=== PATIENT | female | born 1985 | race African-American/Black ===

== ENCOUNTER 2018-02-17 10:56 | Outpatient (REF) | payer BC, SELFPAY ==
[2018-02-17 14:31] LABS: ALT 22 U/L (12-78); AST 29 U/L (15-37); Albumin 3.8 g/dL (3.4-5.0); Alkaline Phosphatase 85 U/L (46-116); Anion Gap 8.9 mmol/L (3-11); BUN 6 mg/dL (7-18); Bilirubin, Total 0.3 mg/dL (0.2-1.0); CO2 27.1 mmol/L (21.0-32.0); CREATININE 1.07 mg/dL (0.55-1.02); Calcium 9.2 mg/dL (8.5-10.1); Chloride 102 mmol/L (98-107); Cholesterol 186 mg/dL (50-200); Estimated GFR 59.43 (mL/min/1.73m2); Glucose 77 mg/dL (70-100); HDL Cholesterol 60 mg/dL (40-60); LDL CHOLESTEROL 111 mg/dL (<100); Potassium 4.5 mmol/L (3.5-5.1); Sodium 138 mmol/L (136-145); TSH (W/Ref FT4) 0.95 uIU/mL (0.358-3.74); Total Protein 8.1 g/dL (6.4-8.2); Triglyceride 81 mg/dL (30-150)
== END 2018-02-17 11:16 ==
LOC: NCHCN 10:56
PROVIDERS: PCP Nurse Practitioner Family; Visit Provider Nurse Practitioner Family
DX: Z20.2 Contact with and (suspected) exposure to infections with a predominantly sexual mode of transmission (principal); Z13.228 Encounter for screening for other metabolic disorders; Z13.220 Encounter for screening for lipoid disorders; Z13.29 Encounter for screening for other suspected endocrine disorder
CPT/HCPCS: 80053; 80061; 83721; 84443

== ENCOUNTER 2019-05-14 12:29 | Outpatient (REF) | payer BC, SELFPAY ==
--- NOTE | 2019-05-14 11:00 | PAPFT_PTH ---
PATIENT: Francine Epps LOC: [facility] U#:[id number] AGE/SX: 34/F ROOM: RE05/14/[address]: Dania Grier : 1985 BED: DIS: 05/14/2019 SPEC #: [id number] RECD: 05/14/19 18:19 STATUS: JAYME REQ #: [id number] JOCELYNE: 05/14/19 11:[address]: Dania Grier DEPT: [facility] Cytology RECD BY: Lorene Gonzalez Tissues: 1 - CX/ENDOCX FOR PAP SMEARS Procedures: PAP THIN PREP/UVM Screening HPV DNA PROBE Comments: [id number]
[2019-05-16 13:36] LABS: Chlamydia Result Negative (Negative); GC Result Negative (Negative)
== END 2019-05-14 12:49 ==
LOC: NCHCN 12:29
PROVIDERS: PCP Nurse Practitioner Family; Visit Provider Nurse Practitioner Family
DX: Z11.3 Encounter for screening for infections with a predominantly sexual mode of transmission (principal); Z00.00 Encounter for general adult medical examination without abnormal findings; Z12.4 Encounter for screening for malignant neoplasm of cervix
CPT/HCPCS: 87491; 87591; 88142; 87624

== ENCOUNTER 2020-01-22 19:38 | Outpatient (REF) | payer MEDICAID, SELFPAY ==
[2020-01-24 15:22] LABS: Chlamydia Result Negative (Negative); GC Result Negative (Negative)
== END 2020-01-22 19:58 ==
LOC: NCHCN 19:38
PROVIDERS: PCP Nurse Practitioner Family; Visit Provider Nurse Practitioner Family
DX: Z11.3 Encounter for screening for infections with a predominantly sexual mode of transmission (principal)
CPT/HCPCS: 87491; 87591

== ENCOUNTER 2020-04-29 18:16 | Outpatient (REF) | payer MEDICAID, SELFPAY ==
[2020-04-30 07:02] LABS: HCT 37.9 % (36.0-46.0); HGB 12.8 g/dL (11.2-15.7); MCH 31.4 pg (27.0-33.0); MCHC 33.8 % (32.0-36.0); MCV 93.1 fL (80-95); MPV 10.8 fL (8.0-11.0); Platelet Count 307 10^3/uL (130-400); RBC 4.07 10^6/uL (3.93-5.22); RDW 12.7 % (11.7-14.6); RDW-SD 43.8 fL; WBC 4.77 10^3/uL (4.4-10.8)
[2020-04-30 07:15] LABS: ALT 55 U/L (14-59); AST 84 U/L (15-37); Alkaline Phosphatase 84 U/L (46-116); Anion Gap 11.7 mmol/L (3-11); BUN 10 mg/dL (7-18); Bilirubin, Total 0.7 mg/dL (0.2-1.0); CO2 28.3 mmol/L (21.0-32.0); CREATININE 1.42 mg/dL (0.55-1.02); Chloride 98 mmol/L (98-107); Glucose 71 mg/dL (74-106); Potassium 3.7 mmol/L (3.5-5.1); Sodium 138 mmol/L (136-145); Total Protein 8.2 g/dL (6.4-8.2)
== END 2020-04-29 18:36 ==
LOC: NCHCN 18:16
PROVIDERS: PCP Nurse Practitioner Family; Visit Provider Nurse Practitioner Family
DX: I10 Essential (primary) hypertension (principal)
CPT/HCPCS: 80053; 85027

== ENCOUNTER 2020-07-22 14:15 | Outpatient (REF) | payer MEDICAID, SELFPAY ==
[2020-07-22 18:34] LABS: ALT 46 U/L (14-59); AST 63 U/L (15-37); Albumin 3.5 g/dL (3.4-5.0); Alkaline Phosphatase 80 U/L (46-116); Anion Gap 10.6 mmol/L (3-11); BUN 6 mg/dL (7-18); Bilirubin, Total 0.7 mg/dL (0.2-1.0); CO2 26.4 mmol/L (21.0-32.0); CREATININE 1.3 mg/dL (0.55-1.02); Calcium 8.9 mg/dL (8.5-10.1); Chloride 102 mmol/L (98-107); Estimated GFR 46.61 (mL/min/1.73m2); Glucose 71 mg/dL (74-106); Potassium 4.2 mmol/L (3.5-5.1); Sodium 139 mmol/L (136-145); Total Protein 7.8 g/dL (6.4-8.2)
== END 2020-07-22 14:16 | disposition home or self-care (01) ==
LOC: NCHCN 14:15
PROVIDERS: PCP Nurse Practitioner Family; Visit Provider Nurse Practitioner Family
DX: I10 Essential (primary) hypertension (principal); R94.4 Abnormal results of kidney function studies; R79.89 Other specified abnormal findings of blood chemistry; F32.9 Major depressive disorder, single episode, unspecified; F10.20 Alcohol dependence, uncomplicated
CPT/HCPCS: 80053

== ENCOUNTER 2020-08-30 11:03 | Emergency (ER) | payer MEDICAID, SELFPAY ==
[2020-08-30] VITALS (10 sets, daily range): BP systolic 136–149; BP diastolic 84–91; PULSE 74–117; RESP 16–25; TEMP 36.4–36.6; O2SAT 98–100
[2020-08-30 11:49] LABS: Abs Immature Grans 0.01 10^3/uL (0.0-0.06); Absolute Basophil Count 0.05 10^3/uL (0.0-0.2); Absolute Eosinophil Count 0.08 10^3/uL (0.0-0.7); Absolute Lymphocyte Count 0.91 10^3/uL (1.2-3.4); Absolute Monocyte Count 0.42 10^3/uL (0.1-0.8); Absolute Neutrophil Count 3.69 10^3/uL (1.2-6.7); Eosinophils % 1.6; HCT 34.9 % (36.0-46.0); HGB 11.5 g/dL (11.2-15.7); Immature Grans % 0.2; Lymphocytes % 17.6; MCH 31.2 pg (27.0-33.0); MCV 94.6 fL (80-95); MPV 9.4 fL (8.0-11.0); Monocytes % 8.1; Neutrophils % 71.5; Nucleated RBC 0 %; Platelet Count 320 10^3/uL (130-400); RBC 3.69 10^6/uL (3.93-5.22); RDW-SD 44.8 fL; WBC 5.16 10^3/uL (4.4-10.8)
--- NOTE | 2020-08-30 12:09 | ED.GENADUL_ITS ---
Discharge Plan Discharge Details Chief Complaint: Allergic Primary Care Provider: Dania Grier ED Provider: Lorene Eddy Home Meds and New Rx's Prescriptions: No Action prednisone 20 mg Tablet 20 mg PO DAILY RF: 0 clonazepam 1 mg Tablet 1 mg PO DAILY PRN PRNRF: 0 lamotrigine 25 mg Tablet 25 mg PO DAILY RF: 0 albuterol sulfate [ProAir HFA] 90 mcg/actuation Hfa Aerosol Inhaler 1 puff INHALATION DAILY RF: 0 escitalopram oxalate 20 mg Tablet 20 mg PO DAILY RF: 0 L norgest/e.estradiol-e.estrad [Ashlyna] 0.15 mg-30 mcg (84)/10 mcg (7) Tablets,Dose Pack,3 Month 1 tab PO DAILY RF: 0 Discharge Data Discharge Date/Time-TO BE ENTERED AT DEPARTURE: 08/30/20 16:15 Medical Decision Making <MADDY Contreras - Last Filed: 08/31/20 08:09> Case discussed with Dr. Morales willing to admit patient to [facility] for continued monitoring Patient received Decadron 10 mg IV, Pepcid 20 mg IV, Benadryl 50g IV, she was maintained on telemetry monitoring She has been hemodynamically stable Patient has been reevaluated on 6+ occasions throughout this encounter, she remained stable from an injury standpoint Agreeable to transfer to [facility], 1432, pending [facility] room assignment Patient was accepted in transfer to [facility] and will be going to 4 W. She remained stable She is agreeable to transfer at this time and is stable for transfer <Augusto Lomax DO - Last Filed: 08/30/20 12:27> Patient seen and assessed in conjunction with Lorene. Please refer to HPI, physical exam assessment and plan. In review patient seems to demonstrate signs and symptoms at this time clinically concerning for NEVIN inhibitor induced angioedema. No clinical evidence at this time of allergic reaction of hives or anaphylaxis. Symptoms per patient appear to be slightly improved from yesterday. Edema appears to be consistent over the face and lips, but at this time there is no evidence at all of angioedema of the tongue uvula posterior o ropharynx. No stridor, no difficulty breathing or swallowing, no difficulty in controlling of her secretions. Currently no indication for emergent intubation at this time clinically. Agree with assessment and plan of Lorene. HPI <MADDY oCntreras - Last Filed: 08/31/20 08:09> General Mode of arrival: ambulatory . Date/Time Provider Initiated Documentation: 08/30/20 11:04 . Limitations to Documentation: no limitations . Information obtained by: patient . HPI Narrative: This 35-year-old female with history of depression, anxiety, hypertension presents with report of perioral swelling and facial swelling for the past 24 hours. Patient reportedly started on lisinopril approximately 4 days prior to arrival. She states that she has significant swelling to her lips yesterday, this has persisted but mildly improved. Now she has significant facial swelling. She denies any difficulty swallowing or shortness of breath. She did discontinue her lisinopril yesterday after onset of the edema. She has taken several doses of Benadryl without alleviation in her symptoms reportedly. She has no history of anaphylaxis. She denies any associated rash. She denies any additional complaints at this time. She denies any additional new medications. Related Data Home Medications Medication Instructions Recorded Confirmed L norgest/e.estradiol-e.estrad 1 tab PO DAILY 08/30/20 08/30/20 [Ashlyna] albuterol sulfate [ProAir HFA] 1 puff INHALATION DAILY 08/30/20 08/30/20 clonazepam 1 mg PO DAILY PRN PRN 08/30/20 08/30/20 escitalopram oxalate 20 mg PO DAILY 08/30/20 08/30/20 lamotrigine 25 mg PO DAILY 08/30/20 08/30/20 prednisone 20 mg PO DAILY 08/30/20 08/30/20 Allergies Allergy/AdvReac Type Severity Reaction Status Date / Time lisinopril Allergy Severe Swelling/Ed Unverified 08/30/20 11:50 rony clindamycin Allergy Intermediate Skin Rash Unverified 08/30/20 11:50 cat dander Allergy Mild Topical Unverified 08/30/20 11:50 Irritation nickel Allergy Mild Itching Unverified 08/30/20 11:50 General Stated Complaint: Allergic TIAGO: 2 Review of Systems <MADDY Contreras - Last Filed: 08/31/20 08:09> Narrative: Review of systems obtained x7 aside from where indicated in HPI PFSH <MADDY Contreras - Last Filed: 08/31/20 08:09> Medical History (Updated 08/30/20 @ 12:13 by Kam Dela Cruz) Ankle injuries Anxiety Asthma Depression Knee bursitis Social History Smoking/Tobacco Use Status: Current every day Tobacco Type: cigarettes Smoking risk assessment performed?: Yes Alcohol Intake: current Alcohol Intake frequency: 0-2 drinks per day Alcohol type: wine Drug use: Never Substance use type: does not use Do you feel safe at home: Yes Do you feel safe in your relationship?: Yes Exam <MADDY Contreras Last Filed: 08/31/20 08:09> Const General: no acute distress Orientation: alert and oriented x3 HENMT Other: Perioral edema, uvula midline, tongue without noted swelling, soft palate and hard palate without swelling, maxillary edema Neck Other: No obvious neck edema or stridor Resp Effort & Inspection: normal respiratory effort Auscultation: clear to auscultation bilaterally Cardio Rate: regular rate Rhythm: regular rhythm Skin Other: No obvious rash Neuro General: patient alert and patient oriented x3 Course <MADDY Contreras Last Filed: 08/31/20 08:09> Vital Signs Vital signs: Vital Signs Temperature 36.4 C L 08/30/20 11:07 Pulse 117 H 08/30/20 11:07 Blood Pressure 142/90 H 08/30/20 11:07 Pulse Oximetry 100 08/30/20 11:07 Temperature 36.5 C 08/30/20 12:04 Temperature Source Temporal Artery Scan 08/30/20 12:04 Pulse 97 H 08/30/20 11:31 Pulse 104 H 08/30/20 11:31 Respiratory Rate 25 H 08/30/20 11:31 Respiratory Effort 08/30/20 11:29 Respiratory Pattern Normal 08/30/20 11:29 Blood Pressure 145/88 H 08/30/20 11:31 Blood Pressure Mean 102 08/30/20 11:31 Pulse Oximetry 100 08/30/20 11:31 Oxygen Delivery Method Room Air 08/30/20 11:07 Oxygen Flow Rate 0 08/30/20 11:07 Pain Level 0 08/30/20 11:07 Lab/Test Results Lab/Test Results: Laboratory Tests Range/Units 08/30/20 11:42 WBC (4.4-10.8) 10^3/uL 5.16 RBC (3.93-5.22) 10^6/uL 3.69 L Hgb (11.2-15.7) g/dL 11.5 Hct (36.0-46.0) % 34.9 L MCV (80-95) fL 94.6 MCH (27.0-33.0) pg 31.2 MCHC (32.0-36.0) % 33.0 RDW (11.7-14.6) % 13.0 Plt Count (130-400) 10^3/uL 320 MPV (8.0-11.0) fL 9.4 Immature Gran % 0.2 Neutrophils % 71.5 Lymphocytes % 17.6 Monocytes % 8.1 Eosinophils % 1.6 Basophils % 1.0 Nucleated RBC % % 0 Absolute Neutrophils (1.2-6.7) 10^3/uL 3.69 Absolute Lymphocytes (1.2-3.4) 10^3/uL 0.91 L Absolute Monocytes (0.1-0.8) 10^3/uL 0.42 Absolute Eosinophils (0.0-0.7) 10^3/uL 0.08 Absolute Basophils (0.0-0.2) 10^3/uL 0.05 Critical Care Time <MADDY Contreras - Last Filed: 08/31/20 08:09> Critical Care Time Critical Care Time: Yes Total Critical Care Time: 35 Attestation: Patient was maintained on telemetry monitoring, Pepcid, Benadryl, s teroids administered, [facility] consultation, continued airway monitoring
[2020-08-30 12:19] LABS: Anion Gap 6.9 mmol/L (3-11); BUN 9 mg/dL (7-18); CO2 27.1 mmol/L (21.0-32.0); CREATININE 1.2 mg/dL (0.55-1.02); Calcium 8.5 mg/dL (8.5-10.1); Chloride 105 mmol/L (98-107); Estimated GFR 51.12 (mL/min/1.73m2); Glucose 81 mg/dL (74-106); Potassium 3.8 mmol/L (3.5-5.1); Sodium 139 mmol/L (136-145)
[2020-08-30] MEDS: Normal Saline Flush 10 ML SYR IVP (12:23)
[2020-08-30] MEDS: diphenhydrAMINE 50 MG/ML VIAL IVP (12:48)
[2020-08-30] MEDS: Dexamethasone 10 MG/ML VIAL IVP (12:48)
[2020-08-30] MEDS: FAMOTIDINE 20 MG/50 ML BAG 200 MG IVPB (12:48)
--- NOTE | 2020-08-30 15:25 | NUR.NOTE ---
Nursing Note: ATTEMPT TO CALL REPORT X2. NO ANSWER.
--- NOTE | 2020-08-30 15:44 | NUR.NOTE ---
Nursing Note: CALLED FOR REPORT. RN STS WILL CALLBACK FOR REPORT.
--- NOTE | 2020-08-30 16:06 | NUR.NOTE ---
Nursing Note:REPORT TO [facility]. BEBA. DANNIELLE. ALL QUESTIONS ANSWERED.
== END 2020-08-30 16:15 | disposition short-term general hospital (02) ==
PROVIDERS: Emergency Provider Physician Assistant; PCP Nurse Practitioner Family
DX: T78.3XXA Angioneurotic edema, initial encounter (principal); T46.4X5A Adverse effect of angiotensin-converting-enzyme inhibitors, initial encounter
CPT/HCPCS: 36415; 36416; 80048; 82962; 86850; 86900; 86901; 96365; 96375; 99291; 85025; J1100; J1200; J3490